=== PATIENT | female | born 1940 | race Caucasian/White ===

== ENCOUNTER 2023-05-23 12:09 | Outpatient (CLI) | payer MEDICARE, SELFPAY ==
--- NOTE | ~2023-05-23 | XR_ITS ---
XR knee LT 3V 05/23/2023 12:39 Indication: Left knee pain after injury Procedure: 3 views left knee Comparison: No prior studies for comparison. Findings: There is severe osteoarthritis of the left knee. No acute fracture. There is a joint effusi on. Osteopenia. Impression: 1: Severe osteoarthritis of the left knee with moderate joint effusion. Reviewed, dictated and finalized at location B. Impression: 1: Severe osteoarthritis of the left knee with moderate joint effusion.
== END 2023-05-23 12:10 | disposition home or self-care (01) ==
LOC: CHSIMG 12:16
PROVIDERS: PCP Physician Assistant; Visit Provider Family Medicine
DX: S89.92XA Unspecified injury of left lower leg, initial encounter (principal); M17.12 Unilateral primary osteoarthritis, left knee; M25.462 Effusion, left knee
CPT/HCPCS: 73562